=== PATIENT | female | born 1960 | race Caucasian/White ===

== ENCOUNTER → 2018-02-09 | Outpatient (CLI) | payer OTHER ==
[~2018-02-09] MED LIST: LIDOCAINE HCL 1% LOCAL INJ 20 ML VIAL ONE
--- NOTE | 2018-02-09 17:39 | Diagnostic Imaging Report ---
Ultrasound-guided left parotid nodule fine needle aspiration. Pre-Procedure Diagnosis: Left parotid nodule Post-procedure Diagnosis:Left parotid nodule Retention Manager: Hero Elizondo MD Sedation: 1% lidocaine local anesthesia. Estimate blood loss: None. Complications: None Implants/Grafts: None Specimen: 25-gauge needle biopsy x 6 Procedure/Findings: Informed consent was obtained and the patient positioned supine in the ultrasound suite. A timeout was performed, followed by preliminary ultrasound of the left neck demonstrating a left parotid nodule. The neck was prepped and draped in standard sterile fashion. Using real-time ultrasound guidance, a 25-gauge needle was advanced into the left parotid nodule. An image was stored in the electronic medical record. The sample was submitted to pathology for adequacy review. The procedure was repeated an additional five times, using identical technique with image capture for the medical record. The needle was subsequently removed. Post procedural ultrasound demonstrated no immediate complication. At the end of the procedure, a sterile dressing was applied. Impression: Ultrasound guided fine needle aspiration of left parotid nodule as above. Signed by: Dr. Hero Elizondo MD on 02/09/2018 5:36 PM
== END ==
LOC: US 12:15
PROVIDERS: ATTEND Otolaryngology
DX: K11.9 Disease of salivary gland, unspecified (principal)
CPT/HCPCS: 10022; 76942; 88112; 88305; J2001

== ENCOUNTER 2018-03-27 05:14 | Observation (INO) | payer OTHER ==
[2018-03-26 08:53] LABS: BASOPHILS # (AUTO) 0.1 (0.0-0.1); BASOPHILS % 0.8 % (0.0-1.0); EOSINOPHILS # (AUTO) 0.5 (0.0-0.4); EOSINOPHILS % 6.3 % (0.0-6.0); HEMATOCRIT 40.5 % (34.2-44.1); HEMOGLOBIN 13.6 g/dL (12.0-16.0); LYMPHOCYTES # (AUTO) 2.4 (1.0-3.2); LYMPHOCYTES % 28.2 % (18.0-39.1); MEAN CORPUSCULAR HEMOGLOBIN 30.9 pg (28-32); MEAN CORPUSCULAR HGB CONC 33.6 g/dL (31-35); MONOCYTES # (AUTO) 0.7 (0.2-0.8); MONOCYTES % 8.1 % (4.4-11.3); NEUTROPHILS # (AUTO) 4.7 (2.1-6.9); NEUTROPHILS % 56.2 % (38.7-80.0); PLATELET COUNT 254 x10e3/uL (140-360); RED CELL DISTRIBUTION WIDTH 12.6 % (11.7-14.4)
[~2018-03-27] VITALS: Ht 160 cm; Wt 84.9 kg
[~2018-03-27 05:14] MED LIST changes: +CLARITIN-D 241 EACH PO; +FLONASE; -LIDOCAINE HCL 1% LOCAL INJ 20 ML VIAL ONE
--- OUTSIDE RECORDS SUMMARY | 2018-03-27 05:17 | XMS REPORT ---
Author Author [facility] Address Unknown Phone Unavailable Care Team Providers Care Environmental Health And Safety Manager Name Role Phone PANKAJ ESCOBAR Unavailable Unavailable Problems This patient has no known problems. Allergies, Adverse Reactions, Alerts This patient has no known allergies or adverse reactions. Medications This patient has no known medications. Results Test Description Test Time Test Comments Text Results Atomic Results Result Comments US GUIDANCE FOR PROCEDURE 2018-02-09 16:40:00 [place] [address] Patient Name: ELIUD WEATHERS MR #: [id number] : 1960 Age/Sex: 58/F Req #: [id number] [facility] Physician: Ordered by: LUZ SOARES, PANKAJ SOARES Report #: [id number] Location: Room/Bed: Procedure: [id number] US/US GUIDANCE FOR PROCEDURE Exam Date: 02/09/18 Exam Time: 1420 REPORT STATUS: Signed Ultrasound-guided left parotid nodule fine needle aspiration. Pre-Procedure Diagnosis: Left parotid nodule Post-procedure Diagnosis:Left parotid nodule Computerized Machine Fabric Cutter: Leia Major MD Sedation: 1% lidocaine local anesthesia. Estimate blood loss: None. Complications: None Implants/Grafts: None Specimen: 25-gauge needle biopsy x 6 Procedure/Findings: Informed consent was obtained and the patient positioned supine in the ultrasound suite. A timeout was performed, followed by preliminary ultrasound of the left neck demonstrating a left parotid nodule. The neck was prepped and draped in standard sterile fashion. Using real- time ultrasound guidance, a 25-gauge needle was advanced into the left parotid nodule. An image was stored in the electronic medical record. The sample was submitted to pathology for adequacy review. The procedure was repeated an additional five times, using identical technique with image capture for the medical record. The needle was subsequently removed. Post procedural ultrasound demonstrated no immediate complication. At the end of the procedure, a sterile dressing was applied. Impression: Ultrasound guided fine needle aspiration of left parotid nodule as above. Signed by: Dr. Leia Major MD on 02/09/2018 5:36 PM Dictated By: LEIA MAJOR MD [id number] Transcribed By: KYLER on 02/09/18 1 736 COPY TO: PANKAJ ESCOBAR FINE NEEDLE ASPIRATION 2018-02-09 16:40:00 [place] [address] Patient Name: ELIUD WEATHERS MR #: [id number] : 1960 Age/Sex: 58/F Req #: [id number] Adm Physician: Ordered by: PANKAJ ESCOBAR MD, MD Report #: [id number] Location: Room/Bed: Procedure: [id number] US/FINE NEEDLE ASPIRATION Exam Date: 02/09/18 Exam Time: 1420 REPORT STATUS: Signed Ultrasound-guided left parotid nodule fine needle aspiration. Pre-Procedure Diagnosis: Left parotid nodule Post-procedure Diagnosis:Left parotid nodule Computerized Machine Fabric Cutter: Leia Major MD Sedation: 1% lidocaine local anesthesia. Estimate blood loss: None. Complications: None Implants/Grafts: None Specimen: 25-gauge needle biopsy x 6 Procedure/Findings: Informed consent was obtained and the patient positioned supine in the ultrasound suite. A timeout was performed, followed by preliminary ultrasound of the left neck demonstrating a left parotid nodule. The neck was prepped and draped in standard sterile fashion. Using real- time ultrasound guidance, a 25-gauge needle was advanced into the left parotid nodule. An image was stored in the electronic medical record. The sample was submitted to pathology for adequacy review. The procedure was repeated an additional five times, using identical technique with image capture for the medical record. The needle was subsequently removed. Post procedural ultrasound demonstrated no immediate complication. At the end of the procedure, a sterile dressing was applied. Impression: Ultrasound guided fine needle aspiration of left parotid nodule as above. Signed by: Dr. Leia Major MD on 02/09/2018 5:36 PM Dictated By: LEIA MAJOR MD 35 Transcribed By: KYLER on 02/09/181735 COPY TO: PANKAJ ESCOBAR
[2018-03-27] MEDS ORDERED: EPINEPHRINE HCL INJ 1 MG/ML AMP ONE (06:54)
[2018-03-27] MEDS ORDERED: SODIUM CHLORIDE 0.9% 50ML 50 ML ONE (06:54)
[2018-03-27] MEDS ORDERED: CLINDAMYCIN PHOS 300MG/2ML VIAL ONE (07:02)
[2018-03-27] MEDS ORDERED: ONDANSETRON HCL INJ 2 MG/ML VIAL ONE ×2 (10:10→17:47)
[2018-03-27] MEDS ORDERED: FENTANYL CITRATE/PF 100MCG/2 ML INJ ONE ×2 (11:11→17:55)
--- NOTE | 2018-03-27 11:29 | Operative Report ---
DATE OF PROCEDURE: March 27, 2018 PREOPERATIVE DIAGNOSIS: Left inferior parotid gland mass. POSTOPERATIVE DIAGNOSIS: Left inferior parotid gland mass. PROCEDURE: Left superficial (inferior portion) parotidectomy with preservation of facial nerve using nerve integrity monitor (NIM). SIGNIFICANT FINDINGS: A 2-cm palpable mass within the inferior portion of the left parotid gland. Frozen section analysis favored possible malignancy, though not completely certain. CROP SPECIALIST: Paz Hughes MD ANESTHESIA: General endotracheal tube anesthesia. SPECIMENS REMOVED: The inferior half of the left superficial parotid gland. ESTIMATED BLOOD LOSS: 20 mL. COMPLICATIONS: None. INDICATIONS: The patient is a 58-year-old white female with a 6-month history of a nontender mass in the left parotid gland. The mass is unchanging in size. She is a nonsmoker. Examination revealed a 2-cm nontender mass in the tail of the inferior portion of the left parotid gland. CT of the neck performed on January 19, 2018, revealed a 1.4 x 1.1 x 2.1 cm mass in the superficial left parotid gland in the inferior portion. 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 On examination, she has a 2-cm nontender mass in the tail of the left parotid gland. She is scheduled for left superficial (possible total) parotidectomy with preservation of facial nerve using nerve integrity monitor (NIM). Risks and complications of the procedure were thoroughly discussed with the patient, and they include infection, bleeding, scarring, failure to improve, need for additional operations, facial nerve paralysis, sweating of the face when eating, numbness of the earlobe, poor external cosmetic appearance of the incision, leakage of saliva beneath the skin flap causing collection of saliva and drainage through the wound, possibility of malignancy and need for further treatment including further additional surgery, need for blood transfusions, and damage to surrounding nerves, blood vessels and muscles. She fully understands and gives consent. PROCEDURE: The patient was taken to the operating room and placed supine on the operating table where general anesthesia was achieved through orotracheal intubation. Paralysis was not used for the anesthesia as facial nerve function monitoring was necessary for the procedure. Injection with 10 mL of 1:100,000 epinephrine without lidocaine was injected along the planned left parotidectomy incision line. The electrodes for the NIM monitor were also attached lateral to the left eye, the left oral commissure as well as the grounding electrodes in the chest. Face was prepped and draped in the usual sterile fashion. Clindamycin was administered. The table was turned 90 degrees with the left side exposed to the surgeon. A parotidectomy incision was then made on the left-hand side starting superiorly in the preauricular area, extending inferiorly past the earlobe, bending posteriorly into the neck and then curving anteriorly along a natural skin crease 2 fingerbreadths inferior to the inferior border of the mandible. Skin flaps were elevated anteriorly and posteriorly. The anterior border of the sternocleidomastoid muscle was identified and was dissected superiorly until it met the tragal cartilage and into the preauricular soft tissues. Blunt dissection then identified the main trunk of the facial nerve. This was then dissected anteriorly until it divided into the superior and inferior trunks. The superior trunk was left undisturbed. The inferior trunk was then dissected anteriorly, dissecting atraumatically all of its branches. The integrity of the nerve branches was confirmed with the nerve stimulator attached to the NIM monitor, including the inferior-most marginal mandibular branch as well as the branches superior to the marginal mandibular branch. The inferior trunk branches were dissected anteriorly as it passed the mass, which was inferior to these branches. The mass was then removed with a rim of normal salivary gland tissue and sent for frozen section analysis. Frozen section analysis favored malignancy, though it was not completely certain. A decision was made at the time to stop the procedure and not proceed with a total parotidectomy due to lack of 100% certainty that it was malignant and the tissue type of possible malignancy. The integrity of the facial nerve branches was then confirmed with the stimulator attached to the NIM monitor. Thorough irrigation was then performed. Bleeding sources were checked with the Valsalva maneuver. A SEAN drain was then inserted through a separate stab incision posterior to the incision site. This was secured with 2-0 silk. The wound was then repaired with interrupted 4-0 Monocryl in a subcuticular fashion followed by Dermabond. Patient was awakened in the operating room, extubated and taken to the recovery room in good condition. The check of the facial nerve function in the recovery room confirmed that she had full facial nerve function. Job#: [id number] NICOLE GORE
[2018-03-27 11:45] VITALS: BP 146/82
[2018-03-27 11:50] VITALS: BP 146/82
[2018-03-27] MEDS ORDERED: HYDROCODONE/APAP 10MG-325MG TAB PO PRN (12:15)
[2018-03-27] MEDS ORDERED: D5NS/KCL 20MEQ 1,000 ML IV SCH (12:15)
[2018-03-27] MEDS ORDERED: ONDANSETRON HCL INJ 2 MG/ML VIAL IV PRN ×2 (12:15→18:30)
[2018-03-27] MEDS: CLINDAMYCIN 600MG / 50ML 50 ML IV SCH ×2 (12:56→21:25)
[2018-03-27 13:00] VITALS: BP 146/82
[2018-03-27] MEDS ORDERED: PROMETHAZINE HCL (IM) 25 MG/ML VIAL ONE (15:26)
[2018-03-27 16:45] VITALS: BP 166/87
[2018-03-27] MEDS ORDERED: PHENYLEPHRINE HCL 1% 10 MG/ML VIAL ONE (17:47)
[2018-03-27] MEDS ORDERED: ACETAMINOPHEN 1000 MG/100 ML IV ONE (17:47)
[2018-03-27] MEDS ORDERED: PROPOFOL IV EMULSION 10 MG/ML 20 ML VIAL ONE (17:47)
[2018-03-27] MEDS ORDERED: SUCCINYLCHOLINE 200 MG/10 ML SYR ONE (17:47)
[2018-03-27] MEDS ORDERED: ISOFLURANE INHAL SOLN 250 ML BTL INH ONE (17:47)
[2018-03-27] MEDS ORDERED: EPHEDRINE SULFATE INJ 50 MG/10 ML SYR ONE (17:47)
[2018-03-27] MEDS ORDERED: ROCURONIUM BROMIDE 10 MG/ML 5ML VIAL ONE (17:47)
[2018-03-27] MEDS ORDERED: DEXAMETHASONE SOD PHOS INJ 4 MG/ML VIAL ONE (17:47)
[2018-03-27] MEDS ORDERED: LIDOCAINE HCL 2% LOCAL INJ 5 ML SDV VIAL INJ ONE (17:47)
[2018-03-27] MEDS ORDERED: MIDAZOLAM HCL 2 MG/2 ML VIAL ONE (17:55)
[2018-03-27 20:00] VITALS: BP_SYST 131; BP_SYST 170; BP_DIAS 74; BP_DIAS 89
[2018-03-27 20:52] VITALS: BP 131/74
[2018-03-27] MEDS: D5NS/KCL 20MEQ 1,000 ML IV SCH (21:00)
[2018-03-28] VITALS: BP 130/72
[2018-03-28 04:00] VITALS: BP 117/64
[2018-03-28] MEDS: D5NS/KCL 20MEQ 1,000 ML IV SCH (05:20)
[2018-03-28 07:58] VITALS: BP 158/79
[2018-03-28 08:15] VITALS: BP 158/79
== END 2018-03-28 09:51 | disposition home or self-care (01) ==
LOC: OR 05:14 → PACU V 10:18 → IMCU 11:49
PROVIDERS: ADMIT Otolaryngology; ATTEND Otolaryngology
DX: D11.0 Benign neoplasm of parotid gland (principal); Z88.0 Allergy status to penicillin; Z91.048 Other nonmedicinal substance allergy status; Z01.812 Encounter for preprocedural laboratory examination
CPT/HCPCS: 36415; 42415; 85025; 86850; 86900; 88307; 88331; 88342; 93005; G0378 ×2; J0131; J0171; J1100; J2001; J2250; J2370; J2405; J2550; J2704; 88304